=== PATIENT | female | born 1960 | race Caucasian/White ===

== ENCOUNTER → 2019-03-19 | Outpatient (CLI) | payer BC | LOC: RAD 07:34 | PROVIDERS: ATTEND Nurse Practitioner Family | DX: Z12.31 Encounter for screening mammogram for malignant neoplasm of breast (principal) | CPT/HCPCS: 77067 ==

== ENCOUNTER → 2019-03-29 | Outpatient (CLI) | payer BC ==
--- NOTE | 2019-03-29 13:50 | Diagnostic Imaging Report ---
INDICATION: Right breast calcifications. Patient presents for additional views. COMPARISON: Screening study from 03/19/2019. TECHNIQUE: Unilateral right 2D and 3D diagnostic mammography was performed. Images include magnification CC and ML as well as a conventional 90 degree lateral view. FINDINGS: The additional views show a cluster of calcifications in the lower and slightly inner retroareolar right breast. These have increased in number since 2017. While many of these appear to be punctate or round, there may be some pleomorphism present. No associated soft tissue mass is identified. IMPRESSION: Cluster of microcalcifications in the lower inner retroareolar right breast. DCIS cannot be entirely excluded. Tissue sampling is recommended. These would be amenable to a stereotactic approach. The findings and recommendations were discussed with the patient. ACR BI-RADS Category 4: Suspicious abnormality. Result letter will be mailed to the patient. Note: At least 10% of breast cancer is not imaged by mammography. Dictated by: Dictated on workstation # [id number]
== END ==
LOC: RAD 12:56
PROVIDERS: ATTEND Nurse Practitioner Family
DX: R92.0 Mammographic microcalcification found on diagnostic imaging of breast (principal)

== ENCOUNTER → 2019-04-09 | Outpatient (CLI) | payer BC ==
[~2019-04-09] VITALS: Ht 172.7 cm; Wt 57.6 kg
[~2019-04-09] MED LIST: LIDOCAINE 1% INJ 20 ML 20 ML VIAL INJ ONE
--- NOTE | 2019-04-09 21:07 | Diagnostic Imaging Report ---
INDICATION: Right breast calcifications. Patient presents for stereotactic biopsy. PROCEDURE: Patient was brought to the stereotactic suite and was placed in a sitting upright position. The breast was positioned mediolaterally. Skin of the medial right breast was prepped and draped in the usual sterile fashion. A small amount of 1% lidocaine was utilized for local anesthesia. An 8-gauge stereotactic needle was advanced into the right breast from a medial approach and placed with its tip per stereotactic coordinates. A total of four core biopsies were obtained with the vacuum assisted device. Specimen radiograph does show calcifications in all four samples, most numerous in sample labeled #1. A localizer clip was then deployed. Followup mammogram viewed on a separate workstation demonstrates a clip in the lower and slightly medial right breast with moderate amount of soft tissue gas from biopsy. IMPRESSION: Successful stereotactic biopsy of right breast calcifications, as described. Pathology results are currently pending. Dictated by: Dictated on workstation # [id number]
== END ==
LOC: RAD 09:42
PROVIDERS: ATTEND Nurse Practitioner Family
DX: D05.11 Intraductal carcinoma in situ of right breast (principal)
CPT/HCPCS: 19081; 88305; 88341; 88342; 88360

== ENCOUNTER 2019-04-16 13:38 | Outpatient (RCR) | payer BC ==
[2019-06-23] MEDS ORDERED: CEPH-507 PO (21:48)
== END 2019-07-15 | disposition home or self-care (01) ==
LOC: ONC 13:38
PROVIDERS: ATTEND Internal Medicine Hematology & Oncology
DX: D05.11 Intraductal carcinoma in situ of right breast (principal); Z80.3 Family history of malignant neoplasm of breast
CPT/HCPCS: 99214

== ENCOUNTER 2019-06-23 19:16 | Emergency (ER) | payer BC ==
[~2019-06-23] VITALS: Ht 172.7 cm; Wt 61.2 kg
--- NOTE | 2019-06-23 19:33 | NUR ---
pt here with " ". pt alert gcs 15. pt had recent bilateral mastectomies. pt been c/o constipation ongoing but developed fever today. pt presents with 4 kodak drains each with positive sx applied. 2 to each breast. pt with serosanguinous drainage and orange drainage noted. on exam left opsite dressing breast appears slightly pink/red. as compared to right which has normal skin color. opsites are clear. pt had " little" bm this am and been using colace mom, mirilax and mag. citrate. pt denies abd pain and n/v. denies dyspnea and no acute sighns of dyspnea noted. lungs cta bilaterally. abd soft nondistended neg pain with palpation. bp left popliteal is 183/102.done kiya pt 194.
--- NOTE | 2019-06-23 19:33 | NUR ---
i apologized to pt. i accidentally caused some pain with lungs sounds touching left breast area incisional area.
--- NOTE | 2019-06-23 19:50 | NUR ---
v/o dr clemons while ago. ok to use left arm for bp and iv.
--- NOTE | 2019-06-23 19:54 | ED GI ---
General Chief Complaint: Abdominal/GI Problems Stated Complaint: FEVER,CONSTIPATION Nursing Triage Note: PATIENT HERE AFTER A DOUBLE MASTECTOMY ON 06/10. SHE HAS CONTINUED TO HAVE PROBLEMS WITH BOWELS SINCE SURGERY. TODAY SHE ALSO BEGAN TO RUN A FEVER. Sepsis Screen: Possible Sepsis Risk Source of Information: Patient Exam Limitations: No Limitations History of Present Illness Date Seen by Provider: Jun 23, 2019 Time Seen by Provider: 19:49 Initial Comments To ER per private vehicle from home with reports of constipation. 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 . She was then found to have a previously unseen tumor of the right breast on pathology report after mastectomy. She had sentinel node biopsy on the right (no lymph node resection on the left). She's had constipation with no bowel movement since the end of May. After surgery she was given ibuprofen and Valium which she took for about one week and has been off of for one week. She is not on opiates. She has tried lltm-psw-elbuttn MiraLAX 1 capful daily, magnesium citrate daily for 3 days, Colace, milk of magnesia. She tried a fleets enema today with minimal output. She denies abdominal pain but does report a heaviness sensation. She denies nausea or vomiting. She does have reports of fever at home starting last night up to 104. In regards to the Omi-Rollins drains that she has, the drainage is reducing and volume and improving and clarity becoming less bloody than more serious. She has follow-up scheduled tomorrow with oncology and plastic surgery in [place]. Timing/Duration: Other Severity/Quality: Moderate Location: Generalized Abdomen Radiation: No Radiation Activities at Onset: None Associated Symptoms: Denies Symptoms Allergies and Home Medications Allergies Coded Allergies: No Known Drug Allergies (Unverified , 04/09/19) Home Medications Cephalexin 500 Mg Capsule, 500 MG PO TID Prescribed by: SAMUEL JOINER on 06/23/19 8634 Patient Home Medication List Home Medication List Reviewed: Yes Review of Systems Review of Systems Constitutional: see HPI, fever EENTM: No Symptoms Reported Respiratory: No Symptoms Reported Cardiovascular: No Symptoms Reported Gastrointestinal: See HPI, Constipated Genitourinary: No Symptoms Reported Musculoskeletal: no symptoms reported Skin: no symptoms reported Psychiatric/Neurological: No Symptoms Reported Past Gbpvvqg-Xtdynz-Eeiadm Hx Patient Social History Alcohol Use: Rarely Uses Recreational Drug Use: No Smoking Status: Never a Smoker 2nd Hand Smoke Exposure: No Recent Foreign Travel: No Contact w/Someone Who Travel: No Recent Infectious Disease Expo: No Recent Hopitalizations: No Seasonal Allergies Seasonal Allergies: No Past Medical History Surgeries: Yes Breast Respiratory: No Cardiac: No Neurological: No Genitourinary: No Gastrointestinal: No Musculoskeletal: No Endocrine: No HEENT: No Cancer: Yes Breast Integumentary: No Physical Exam Vital Signs Vital Signs - First Documented 06/23/19 06/23/19 19:23 21:26 Temp 100.5 Pulse 102 Resp 20 B/P (MAP) 115/57 (76) Pulse Ox 97 O2 Delivery Room Air Capillary Refill : Less Than 3 Seconds Height/Weight/BMI Height: 5'8.00" Weight: 135lbs. 0oz. [id number]; 19.3 BMI Method:Actual General Appearance: WD/WN, no apparent distress HEENT: PERRL/EOMI, normal ENT inspection Neck: non-tender, full range of motion Respiratory: no respiratory distress, no accessory muscle use Gastrointestinal: normal bowel sounds, non tender, soft; No distended, No guarding, No rebound, No tenderness Extremities: normal range of motion, non-tender Neurologic/Psychiatric: alert, normal mood/affect, oriented x 3 Skin: normal color, warm/dry, other (the mastectomy incisions to the anterior chest wall are clean dry and intact without drainage, no erythema. No dehiscence of the wounds.) Focused Exam Lactate Level 06/23/19 20:02: Lactic Acid Level 1.09 Lactic Acid Level Laboratory Tests Test 06/23/19 20:02 Lactic Acid Level 1.09 MMOL/L (0.50-2.00) Progress/Results/Core Measures Results/Orders Lab Results Laboratory Tests Test 06/23/19 20:02 06/23/19 20:13 Range/Units White Blood Count 15.0 H 4.3-11.0 10^3/uL Red Blood Count 4.10 L 4.35-5.85 10^6/uL Hemoglobin 12.2 11.5-16.0 G/DL Hematocrit 36 35-52 % Mean Corpuscular Volume 88 80-99 FL Mean Corpuscular Hemoglobin 30 25-34 PG Mean Corpuscular Hemoglobin Concent 34 32-36 G/DL Red Cell Distribution Width 13.0 10.0-14.5 % Platelet Count 257 130-400 10^3/uL Mean Platelet Volume 10.1 7.4-10.4 FL Neutrophils (%) (Auto) 90 H 42-75 % Lymphocytes (%) (Auto) 5 L 12-44 % Monocytes (%) (Auto) 4 0-12 % Eosinophils (%) (Auto) 0 0-10 % Basophils (%) (Auto) 0 0-10 % Neutrophils # (Auto) 13.5 H 1.8-7.8 X 10^3 Lymphocytes # (Auto) 0.8 L 1.0-4.0 X 10^3 Monocytes # (Auto) 0.6 0.0-1.0 X 10^3 Eosinophils # (Auto) 0.0 0.0-0.3 10^3/uL Basophils # (Auto) 0.0 0.0-0.1 10^3/uL Neutrophils % (Manual) 90 % Lymphocytes % (Manual) 5 % Monocytes % (Manual) 4 % Band Neutrophils 1 % Toxic Granulation 1+ Blood Morphology Comment NORMAL Sodium Level 141 135-145 MMOL/L Potassium Level 3.9 3.6-5.0 MMOL/L Chloride Level 103 98-107 MMOL/L Carbon Dioxide Level 26 21-32 MMOL/L Anion Gap 12 5-14 MMOL/L Blood Urea Nitrogen 13 7-18 MG/DL Creatinine 0.82 0.60-1.30 MG/DL Estimat Glomerular Filtration Rate > 60 BUN/Creatinine Ratio 16 Glucose Level 104 70-105 MG/DL Lactic Acid Level 1.09 0.50-2.00 MMOL/L Calcium Level 9.1 8.5-10.1 MG/DL Corrected Calcium 8.9 8.5-10.1 MG/DL Total Bilirubin 0.3 0.1-1.0 MG/DL Aspartate Amino Transf (AST/SGOT) 21 5-34 U/L Alanine Aminotransferase (ALT/SGPT) 22 0-55 U/L Alkaline Phosphatase 82 40-136 U/L Total Protein 6.8 6.4-8.2 GM/DL Albumin 4.2 3.2-4.5 GM/DL Urine Color YELLOW Urine Clarity CLEAR Urine pH 7 5-9 Urine Specific [place] 1.005 L 1.016-1.022 Urine Protein NEGATIVE NEGATIVE Urine Glucose (UA) NEGATIVE NEGATIVE Urine Ketones NEGATIVE NEGATIVE Urine Nitrite NEGATIVE NEGATIVE Urine Bilirubin NEGATIVE NEGATIVE Urine Urobilinogen NORMAL NORMAL MG/DL Urine Leukocyte Esterase 1+ H NEGATIVE Urine RBC (Auto) NEGATIVE NEGATIVE Urine RBC NONE /HPF Urine WBC NONE /HPF Urine Crystals NONE /LPF Urine Bacteria TRACE /HPF Urine Casts NONE /LPF Urine Mucus NEGATIVE /LPF Urine Culture Indicated NO Micro Results Microbiology 06/23/19 Blood Culture - Preliminary, Resulted No growth 06/23/19 Blood Culture - Preliminary, Resulted No growth My Orders Orders - SAMUEL JOINER C[employer] PLAYER Cbc With Automated Diff (06/23/19 19:46) Comprehensive Metabolic Panel (06/23/19 19:46) Ua Culture If Indicated (06/23/19 19:46) Ed Iv/Invasive Line Start (06/23/19 19:46) Ct Abdomen/Pelvis W (06/23/19 19:46) Chest Pa/Lat (2 View) (06/23/19 19:46) Blood Culture (06/23/19 19:46) Lactic Acid Analyzer (06/23/19 19:46) Ed Iv/Invasive Line Start (06/23/19 19:46) Manual Differential (06/23/19 20:02) Iohexol Injection (Omnipaque 350 Mg/Ml 1 (06/23/19 20:45) Received Contrast (Hold Metformin- Contr (06/23/19 20:45) Ns (Ivpb) (Sodium Chloride 0.9% Ivpb Bag (06/23/19 20:45) Peg 3340/Electrolyte Powder (Golytely Po (06/23/19 21:15) Rx-Cephalexin Capsule (Rx-Keflex Capsule (06/23/19 22:02) Vital Signs/I&O 06/23/19 06/23/19 06/23/19 19:23 21:26 22:28 Temp 100.5 100.0 99.5 Pulse 102 96 88 Resp 20 12 16 B/P (MAP) 115/57 (76) 113/49 (70) Pulse Ox 97 98 96 O2 Delivery Room Air Room Air Diagnostic Imaging Diagonstic Imaging: Xray Comments NAME: CARLYN VALDES [facility] REC#: [id number] PT STATUS: REG ER : 1960 PHYSICIAN: SAMUEL JOINER APRN ADMIT DATE: 06/23/19/ER Draft Date of Exam:06/23/19 CT ABDOMEN/PELVIS W PROCEDURE: CT abdomen and pelvis with contrast. TECHNIQUE: Multiple contiguous axial images were obtained through the abdomen and pelvis after administration of intravenous contrast. Auto Exposure Controls were utilized during the CT exam to meet ALARA standards for radiation dose reduction. INDICATION: Fever. Status post recent double mastectomy. COMPARISON: None FINDINGS: Included portions of the lung bases show minimal atelectasis. Postsurgical changes of bilateral breasts partially visualized. CT abdomen: Large amount of air and stool is noted scattered throughout the colon. Normal appendix cannot be adequately identified, but there is no pericecal inflammation. Small bowel loops are nondistended. The kidneys, adrenal glands, spleen, and pancreas have a normal CT appearance. Within the liver, there is spherical lesion near the junction of segments 5 and 6. Note is made of nodular peripheral enhancement suggestive of hemangioma. No other focal hepatic abnormalities are seen. There is no loculated fluid collection, free fluid, nor free air within the abdomen. No abnormal mesenteric or retroperitoneal adenopathy is seen. There is mild scattered calcified aortic atherosclerosis. Osseous structures show no acute abnormalities. CT pelvis: Urinary bladder is grossly unremarkable. There appears to be trace free fluid. There is no loculated fluid collection or free air within the pelvis. No abnormal adenopathy is seen. Osseous structures show no acute abnormalities. IMPRESSION: 1. Large amount of colonic air and stool. Please correlate for constipation. 2. Small hepatic lesion, which likely represents a small hemangioma. Followup is recommended. 3. Trace free fluid within the pelvis. No loculated fluid collection to suggest abscess. Dictated on workstation # [id number] Dict: 06/23/192115 Trans: 06/23/192138 [facility] [id number] Interpreted by: MANFRED FREITAS MD Electronically signed by: NAME: CARLYN VALDES [facility] REC#: [id number] PT STATUS: REG ER : 1960 PHYSICIAN: SAMUEL JOINER APRN ADMIT DATE: 06/23/19/ER Draft Date of Exam:06/23/19 CHEST PA/LAT (2 VIEW) INDICATION: Bilateral mastectomy. Fever. COMPARISON: None FINDINGS: Frontal and lateral views of the chest demonstrate normal heart size and pulmonary vascularity. The lungs are clear. There are no signs of infiltrate, pleural effusions or pneumothoraces. The visualized osseous structures show no acute abnormalities. Postsurgical changes of bilateral breasts are identified. Indwelling surgical channel drains are noted. IMPRESSION: 1. No acute process. No signs of infiltrates, effusions or pneumothoraces. Dictated on workstation # [id number] Dict: 06/23/192141 Trans: 06/23/192142 [facility] [id number] Interpreted by: MANFRED FREITAS MD Electronically signed by: Departure Impression Primary Impression: Constipation Qualified Codes: K59.00 - Constipation, unspecified Additional Impression: Post operative leukocytosis Disposition: 01 HOME, SELF-CARE Condition: Stable Departure-Patient Inst. Decision time for Depature: 21:46 Referrals: GENA MYERS MD (PCP/Family) Primary Care Physician Patient Instructions: Constipation, Adult (DC) Add. Discharge Instructions: 1. Keep your appointment with your physician tomorrow. Take the laxative tonight. 8 ounces every 15 minutes until bowel movement. Scripts Cephalexin (Keflex) 500 Mg Capsule 500 MG PO TID, #15 CAP Prov: SAMUEL JOINER APRN 06/23/19 SAMUEL JOINER APRN Jun 23, 2019 19:54
--- NOTE | 2019-06-23 20:02 | NUR ---
bp left arm is 131/53
--- NOTE | 2019-06-23 20:02 | NUR ---
dr knows bp left arm
--- NOTE | 2019-06-23 20:02 | NUR ---
pt knows npo.
--- NOTE | 2019-06-23 20:07 | NUR ---
labs to lab by me
--- NOTE | 2019-06-23 20:09 | NUR ---
pt to bathroom for ua.
--- NOTE | 2019-06-23 20:14 | NUR ---
lab taking ua with there blood cx.
[2019-06-23 20:22] LABS: BASOPHILS % (AUTO) 0 % (0-10); EOSINOPHILS % (AUTO) 0 % (0-10); HEMATOCRIT 36 % (35-52); HEMOGLOBIN 12.2 G/DL (11.5-16.0); LYMPHOCYTES # (AUTO) 0.8 X 10^3 (1.0-4.0); LYMPHOCYTES % (AUTO) 5 % (12-44); MEAN CORPUSCULAR HEMOGLOBIN 30 PG (25-34); MEAN CORPUSCULAR HGB CONC 34 G/DL (32-36); MEAN CORPUSCULAR VOLUME 88 FL (80-99); MEAN PLATELET VOLUME 10.1 FL (7.4-10.4); MONOCYTES # (AUTO) 0.6 X 10^3 (0.0-1.0); MONOCYTES % (AUTO) 4 % (0-12); NEUTROPHILS # (AUTO) 13.5 X 10^3 (1.8-7.8); NEUTROPHILS % (AUTO) 90 % (42-75); PLATELET COUNT 257 10^3/uL (130-400)
[2019-06-23 20:25] LABS: BILIRUBIN,URINE NEGATIVE (NEGATIVE); CLARITY,URINE CLEAR; COLOR,URINE YELLOW; GLUCOSE, URINE (UA) NEGATIVE (NEGATIVE); KETONES,URINE NEGATIVE (NEGATIVE); LEUKOCYTE ESTERASE ,URINE 1+ (NEGATIVE); NITRITE,URINE NEGATIVE (NEGATIVE); PH,URINE 7 (5-9); PROTEIN,URINE NEGATIVE (NEGATIVE); UROBILINOGEN,URINE NORMAL (NORMAL)
[2019-06-23 20:32] LABS: BACTERIA,URINE TRACE /HPF
[2019-06-23 20:45] LABS: ALANINE AMINOTRANSFERASE 22 U/L (0-55); ALBUMIN 4.2 GM/DL (3.2-4.5); ALKALINE PHOSPHATASE 82 U/L (40-136); BILIRUBIN,TOTAL 0.3 MG/DL (0.1-1.0); BUN/CREATININE RATIO 16; CALCIUM 9.1 MG/DL (8.5-10.1); CARBON DIOXIDE 26 MMOL/L (21-32); CHLORIDE 103 MMOL/L (98-107); CREATININE SERUM 0.82 MG/DL (0.60-1.30); GFR ESTIMATED > 60; GLUCOSE 104 MG/DL (70-105); POTASSIUM 3.9 MMOL/L (3.6-5.0); SODIUM 141 MMOL/L (135-145); TOTAL PROTEIN 6.8 GM/DL (6.4-8.2)
[2019-06-23] MEDS ORDERED: NS 100 ML (IVPB) BAG IV ONE (20:45)
[2019-06-23] MEDS ORDERED: HOLD METFORMIN - RECEIVED CONTRAST 20 ML VIAL IV SCH (20:45)
[2019-06-23] MEDS ORDERED: IOHEXOL 350 MG/ML 100 ML (OMNIPAQUE 350) VIAL IV ONE (20:45)
[2019-06-23 20:46] LABS: BAND NEUTROPHILS 1 %; NEUTROPHILS % (MANUAL) 90 %
[2019-06-23 20:47] LABS: LYMPHOCYTES % (MANUAL) 5 %; MONOCYTES % (MANUAL) 4 %; RBC MORPH NORMAL; TOXIC GRANULATION/VACUOLAZATIO 1+
[2019-06-23] MEDS ORDERED: GOLYTELY POWDER 4000 ML BTL PO ONE (21:15)
[2019-06-23 21:26] VITALS: BP 115/57
--- NOTE | 2019-06-23 21:27 | NUR ---
pt remains alert gcs 15. and another adult female in room. pt denies abd pain and nausea and no v/d noted in er visit thus far. denies dyspnea and no acute sighns of dyspnea noted.
--- NOTE | 2019-06-23 21:40 | Diagnostic Imaging Report ---
PROCEDURE: CT abdomen and pelvis with contrast. TECHNIQUE: Multiple contiguous axial images were obtained through the abdomen and pelvis after administration of intravenous contrast. Auto Exposure Controls were utilized during the CT exam to meet ALARA standards for radiation dose reduction. INDICATION: Fever. Status post recent double mastectomy. COMPARISON: None FINDINGS: Included portions of the lung bases show minimal atelectasis. Postsurgical changes of bilateral breasts partially visualized. CT abdomen: Large amount of air and stool is noted scattered throughout the colon. Normal appendix cannot be adequately identified, but there is no pericecal inflammation. Small bowel loops are nondistended. The kidneys, adrenal glands, spleen, and pancreas have a normal CT appearance. Within the liver, there is spherical lesion near the junction of segments 5 and 6. Note is made of nodular peripheral enhancement suggestive of hemangioma. No other focal hepatic abnormalities are seen. There is no loculated fluid collection, free fluid, nor free air within the abdomen. No abnormal mesenteric or retroperitoneal adenopathy is seen. There is mild scattered calcified aortic atherosclerosis. Osseous structures show no acute abnormalities. CT pelvis: Urinary bladder is grossly unremarkable. There appears to be trace free fluid. There is no loculated fluid collection or free air within the pelvis. No abnormal adenopathy is seen. Osseous structures show no acute abnormalities. IMPRESSION: 1. Large amount of colonic air and stool. Please correlate for constipation. 2. Small hepatic lesion, which likely represents a small hemangioma. Followup is recommended. 3. Trace free fluid within the pelvis. No loculated fluid collection to suggest abscess. Dictated by: Dictated on workstation # [id number]
--- NOTE | 2019-06-23 21:44 | Diagnostic Imaging Report ---
INDICATION: Bilateral mastectomy. Fever. COMPARISON: None FINDINGS: Frontal and lateral views of the chest demonstrate normal heart size and pulmonary vascularity. The lungs are clear. There are no signs of infiltrate, pleural effusions or pneumothoraces. The visualized osseous structures show no acute abnormalities. Postsurgical changes of bilateral breasts are identified. Indwelling surgical channel drains are noted. IMPRESSION: 1. No acute process. No signs of infiltrates, effusions or pneumothoraces. Dictated by: Dictated on workstation # [id number]
[2019-06-23] MEDS ORDERED: CEPH-507 PO (21:48)
--- NOTE | 2019-06-23 21:58 | NUR ---
dr aidee houser in room to give pt for home use.
[2019-06-23] MEDS ORDERED: RX-CEPHALEXIN (KEFLEX) 250 MG CAP PPK#4 PO STA (22:02)
[2019-06-23 22:28] VITALS: BP 113/49
--- NOTE | 2019-06-23 22:28 | NUR ---
d/c instructions to pt. told to read all papers. scripts faxed. pt left ambulatory with . pt knows f/u. i went over the handtyped by information on the chart. iv d/cd by me prior to d/c. take home golytely and keflex given. i wrote script dose and golytely on d/c instructions.
== END 2019-06-23 22:28 | disposition home or self-care (01) ==
LOC: EDUNIT# 19:16 → ER 19:18
DX: D72.829 Elevated white blood cell count, unspecified (principal); K59.00 Constipation, unspecified; Z85.3 Personal history of malignant neoplasm of breast; Z90.13 Acquired absence of bilateral breasts and nipples
CPT/HCPCS: 36415; 71046; 74177; 80053; 81000; 83605; 85007; 85027; 87040

== ENCOUNTER 2020-06-15 05:45 | Outpatient (CLI) | payer BC ==
[~2020-06-15] VITALS: Ht 172.7 cm; Wt 61.2 kg
[~2020-06-15 05:45] MED LIST changes: +CEPH-507 PO; -LIDOCAINE 1% INJ 20 ML 20 ML VIAL INJ ONE
[2020-06-15] MEDS ORDERED: ALEN70TA5 PO (15:03)
[2020-06-15] MEDS ORDERED: ANAS1TAB50 PO (15:03)
== END 2020-06-15 15:04 ==
LOC: PREOP 05:45
PROVIDERS: ATTEND Internal Medicine
DX: Z01.818 Encounter for other preprocedural examination (principal); Z01.812 Encounter for preprocedural laboratory examination; Z12.11 Encounter for screening for malignant neoplasm of colon; Z88.2 Allergy status to sulfonamides

== ENCOUNTER 2020-06-23 09:25 | Day surgery (SDC) | payer BC ==
--- NOTE | 2020-06-14 07:32 | HISTORY AND PHYSICAL ---
DATE OF SERVICE: COLONOSCOPY HISTORY AND PHYSICAL HISTORY OF PRESENT ILLNESS: The patient is a 59-year-old white female referred by Dr. Foreman for screening colonoscopy. She is deemed to be of higher than average risk as her twin sister was diagnosed with colon cancer in her late 40s and the patient has personal history of breast cancer diagnosed one year ago. She underwent a double mastectomy. She reports that genetic testing was negative. She does not recall any history of polyps on her last colonoscopy 10 years ago. PAST SURGICAL HISTORY: Significant for double mastectomy only. FAMILY HISTORY: Her twin sister with colon cancer diagnosed in her late 40s. Mother living at the age of 94 with type 2 diabetes mellitus, also a survivor of gastric cancer. Father at the age of 52 of pancreatic cancer and was a heavy smoker. She does not believe he had excessive drinking history. She has three sisters, one of which also has breast cancer. 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 PAST MEDICAL HISTORY: Significant for osteoporosis for which she takes alendronate. She has no history of fragility fracture, is on 2000 units of vitamin D daily and anastrozole 1 mg daily. REVIEW OF SYSTEMS: CONSTITUTIONAL: She denies night sweats, chills, fever or change in weight. CARDIOVASCULAR: She denies syncope, presyncope, chest pain, orthopnea, PND or pedal edema. PULMONARY: She denies cough, wheezing or shortness of breath. GASTROINTESTINAL: She denies bright red blood per rectum, melena, change in bowel habit or abdominal pain. PHYSICAL EXAMINATION: GENERAL: Reveals a fit appearing white female in no acute distress. VITAL SIGNS: Weight 136 pounds and blood pressure 130/80. HEENT: Unremarkable. Mallampati 1 pharyngeal configuration. CHEST: Clear to auscultation. CARDIOVASCULAR: Reveals a regular rate and rhythm without murmur, S3 or S4. ABDOMEN: Soft, supple without mass, organomegaly or tenderness. No bruits noted. EXTREMITIES: Reveal no cyanosis, clubbing or edema. ASSESSMENT AND PLAN: The patient was set up for screening colonoscopy, deemed to be of higher than average risk considering a twin sister diagnosed with early colon cancer in her late 40s. Prep instructions and Suprep kit were given and questions were answered. I thank you for the referral of this pleasant lady. Job ID: [id number] DocumentID: [id number] Dictated Date: 06/08/2020 16:51:39 Plastics Process Hand Date: 06/08/2020 17:28:15 Dictated By: BASSAM SAVAGE MD
[~2020-06-23] VITALS: Ht 172.7 cm; Wt 61.2 kg
[2020-06-23] VITALS (13 sets, daily range): BP systolic 131–152; BP diastolic 72–101
[~2020-06-23 09:25] MED LIST changes: +ALEN70TA5 PO; +ANAS1TAB50 PO
[2020-06-23] MEDS ORDERED: D5 LR IV SOLUTION 1,000 ML IV STA (09:33)
[2020-06-23] MEDS ORDERED: D5 LR IV SOLUTION 1,000 ML IV ONE (09:34)
--- OUTSIDE RECORDS SUMMARY | 2020-06-23 09:42 | XMS REPORT | Continuity of Care Document ---
Author Organization Unknown Address Unknown Phone Unavailable Allergies Active Description Code Type Severity Reaction Onset Reported/Identified Relationship to Patient Clinical Status Yes NKA NKA Drug Allergy N/A N/A Yes No Known Drug Allergies [id number] Drug Allergy Unknown N/A 04/09/2019 Yes Sulfa (Sulfonamide Antibiotics) [id number] Drug Allergy Unknown Rash 020 Medications There is no data. Problems Date Dx Coded Attending Type Code Diagnosis Diagnosed By 10/07/2014 Marty Ortiz V1 6.3 10/07/2014 Marty Ortiz V76.11 10/09/2014 Marty Ortiz V1 6.3 10/09/2014 Marty Ortiz V76.11 10/20/2014 Marty Ortiz V1 6.3 10/20/2014 Marty Ortiz V76.11 12/26/2015 Marty Ortiz Z12.31 12/26/2015 Marty Ortiz Z8 0.3 12/28/2015 Marty Ortiz Z12.31 12/28/2015 Marty Ortiz Z8 0.3 01/03/2016 Marty Ortiz Z12.31 01/03/2016 Marty Ortiz Z8 0.3 03/05/2016 H69.80 Oth Disrd Of Eustachian Tube, Unspecified Ear 03/13/2016 H69.83 Oth er Specified Disorders Of Eustachian Tube, Bilateral 04/24/2017 Purdom, [place] B H69.80 Other Specified Disorders Of Eustachian Tube, Unspecified Ear 04/30/2017 Marty Ortiz E7 8.5 Hyperlipidemia, unspecified 05/06/2017 Purdom, [place] B H69.83 Other Specified Disorders Of Eustachian Tube, Bilateral 05/07/2017 Marty Ortiz Z12.31 ENCNTR SCREEN MAMMOGRAM FOR MALIGNANT NE 05/09/2017 Marty Ortiz A Z12.31 ENCNTR SCREEN MAMMOGRAM FOR MALIGNANT NE 05/14/2017 Marty Ortiz Z12.31 ENCNTR SCREEN MAMMOGRAM FOR MALIGNANT NE 03/20/2019 SHIVAM RAMOS WEBMASTER Ot Z12.31 ENCNTR SCREEN MAMMOGRAM FOR MALIGNANT NE 03/29/2019 SHIVAM RAMOS WEBMASTER Ot Z12.31 ENCNTR SCREEN MAMMOGRAM FOR MALIGNANT NE 03/30/2019 SHIVAM RAMOS WEBMASTER Ot R92.0 MAMMOGRAPHIC MICROCALCIFICATION FOUND ON 04/15/2019 SHIVAM RAMOS WEBMASTER Ot R92.0 MAMMOGRAPHIC MICROCALCIFICATION FOUND ON 04/25/2019 LYNNETTE DENNISON Ot D05.11 INTRADUCTAL CARCINOMA IN SITU OF RIGHT B 04/28/2019 NITHIN LOCK MD Ot D05.11 INTRADUCTAL CARCINOMA IN SITU OF RIGHT B 04/28/2019 NITHIN LOCK MD Ot Z80.3 FAMILY HISTORY OF MALIGNANT NEOPLASM OF 05/11/2019 LYNNETTE DENNISON Ot D05.11 INTRADUCTAL CARCINOMA IN SITU OF RIGHT B 05/31/2019 NITHIN LOCK MD Ot D05.11 INTRADUCTAL CARCINOMA IN SITU OF RIGHT B 05/31/2019 NITHIN LOCK MD Ot Z80.3 FAMILY HISTORY OF MALIGNANT NEOPLASM OF 06/23/2019 SAMUEL JOINER WEBMASTER Ot D72.829 ELEVATED WHITE BLOOD CELL COUNT, UNSPECI 06/23/2019 SAMUEL JOINER WEBMASTER Ot K59.00 CONSTIPATION, UNSPECIFIED 06/23/2019 SAMUEL JOINER WEBMASTER Ot R50 .9 FEVER, UNSPECIFIED 06/23/2019 SAMUEL JOINER WEBMASTER Ot Z85 .3 PERSONAL HISTORY OF MALIGNANT NEOPLASM O 06/23/2019 SAMUEL JOINER WEBMASTER Ot Z90.13 ACQUIRED ABSENCE OF BILATERAL BREASTS AN 07/15/2019 NITHIN LOCK MD Ot D05.11 INTRADUCTAL CARCINOMA IN SITU OF RIGHT B 07/15/2019 NITHIN LOCK MD Ot Z80.3 FAMILY HISTORY OF MALIGNANT NEOPLASM OF 07/16/2019 NITHIN LOCK MD Ot D05.11 INTRADUCTAL CARCINOMA IN SITU OF RIGHT B 07/16/2019 NITHIN LOCK MD Ot Z80.3 FAMILY HISTORY OF MALIGNANT NEOPLASM OF 05/15/2020 W R03.0 Elev ated blood pressure reading without diagnosis of hypertension Oneida Foreman 06/05/2020 W R03.0 Elev ated blood pressure reading without diagnosis of hypertension Ahsan Oneida 06/15/2020 ASHVIN CHRISTIANSON, NITHIN Ot D05.11 INTRADUCTAL CARCINOMA IN SITU OF RIGHT B 06/15/2020 ASHVIN CHRISTIANSON, NITHIN Ot Z80.3 FAMILY HISTORY OF MALIGNANT NEOPLASM OF 06/16/2020 HUSSEIN CHRISTIANSON, BASSAM Wayne Ot Z01.812 ENCOUNTER FOR PREPROCEDURAL LABORATORY E 06/16/2020 HUSSEIN CHRISTIANSON, BASSAM Wayne Ot Z01.818 ENCOUNTER FOR OTHER PREPROCEDURAL EXAMIN 06/16/2020 HUSSEIN CHRISTIANSON, BASSAM Wayne Ot Z12. 11 ENCOUNTER FOR SCREENING FOR MALIGNANT NE 06/16/2020 BASSAM SAVAGE MD Ot Z88. 2 ALLERGY STATUS TO SULFONAMIDES STATUS 06/16/2020 BASSAM SAVAGE MD Ot Z01.812 ENCOUNTER FOR PREPROCEDURAL LABORATORY E 06/16/2020 HUSSEIN CHRISTIASNON, BASSAM Wayne Ot Z01.818 ENCOUNTER FOR OTHER PREPROCEDURAL EXAMIN 06/16/2020 BASSAM SAVAGE MD Ot Z12. 11 ENCOUNTER FOR SCREENING FOR MALIGNANT NE 06/16/2020 BASSAM SAVAGE MD Ot Z88. 2 ALLERGY STATUS TO SULFONAMIDES STATUS Procedures There is no data. Results Test Result Range Complete blood count (CBC) with automate d white blood cell (WBC) differential - 06/23/19 20:02 Blood leukocytes automated count (number/volume) 15.0 10*3/uL 4.3-11.0 Blood erythrocytes automated count (number/volume) 4.10 10*6/uL 4.35-5.85 Venous blood hemoglobin measurement (mass/volume) 12.2 g/dL 11.5-16.0 Blood hematocrit (volume fraction) 36 % 35-52 Automated erythrocyte mean corpuscular volume 88 [ foz_us] 80-99 Automated erythrocyte mean corpuscular h emoglobin (mass per erythrocyte) 30 pg 25-34 Automated erythrocyte mean corpuscular h emoglobin concentration measurement (mass/volume) 34 g/dL 32-36 Automated erythrocyte distribution width ratio 13. 0 % 10.0- 14.5 Automated blood platelet count (count/volume) 257 10*3/uL 130-400 Automated blood platelet mean volume measurement 10.1 [foz_us] 7.4-10.4 Automated blood neutrophils/100 leukocytes 90 % 42-75 Automated blood lymphocytes/100 leukocytes 5 % 12-44 Blood monocytes/100 leukocytes 4 % 0-12 Automated blood eosinophils/100 leukocytes 0 % 0-10 Automated blood basophils/100 leukocytes 0 % 0-10 Blood neutrophils automated count (number/volume) 13.5 10*3 1.8-7.8 Blood lymphocytes automated count (number/volume) 0.8 10*3 1.0-4.0 Blood monocytes automated count (number/volume) 0. 6 10*3 0.0-1.0 Automated eosinophil count 0.0 10*3/uL 0 .0-0.3 Automated blood basophil count (count/volume) 0.0 10*3/uL 0.0-0.1 Comprehensive metabolic panel - 06/23/19 20:02 Serum or plasma sodium measurement (moles/volume) 141 mmol/L 135-145 Serum or plasma potassium measurement (moles/volume) 3.9 mmol/L 3.6-5.0 Serum or plasma chloride measurement (moles/volume) 103 mmol/L 98-107 Carbon dioxide 26 mmol/L 21-32 Serum or plasma anion gap determination (moles/volume) 12 mmol/L 5-14 Serum or plasma urea nitrogen measurement (mass/volume ) 13 mg/dL 7-18 Serum or plasma creatinine measurement (mass/volume) 0.82 mg/dL 0.60-1.30 Serum or plasma urea nitrogen/creatinine mass ratio 16 NRG Serum or plasma creatinine measurement w ith calculation of estimated glomerular filtration rate > NRG Serum or plasma glucose measurement (mass/volume) 104 mg/dL 70-105 Serum or plasma calcium measurement (mass/volume) 9.1 mg/dL 8.5-10.1 Serum or plasma total bilirubin measurement (mass/volu me) 0.3 mg/dL 0.1-1.0 Serum or plasma alkaline phosphatase yajaira surement (enzymatic activity/volume) 82 U/L 40-136 Serum or plasma aspartate aminotransfera se measurement (enzymatic activity/volume) 21 U/L 5-34 Serum or plasma alanine aminotransferase measurement (enzymatic activity/volume) 22 U/L 0-55 Serum or plasma protein measurement (mass/volume) 6.8 g/dL 6.4-8.2 Serum or plasma albumin measurement (mass/volume) 4.2 g/dL 3.2-4.5 CALCIUM CORRECTED 8.9 mg/dL 8.5-10.1 Manual absolute plasma cell count - 06/10 02/26 20:02 Blood monocytes/100 leukocytes 4 % NRG Manual blood segmented neutrophils/100 leukocytes 90 % NRG Blood band neutrophils/100 leukocytes 1 % NRG Manual blood lymphocytes/100 leukocytes 5 % NRG Blood erythrocyte morphology finding identification NORMAL NRG Blood toxic granules detection by light microscopy 1+ NRG Blood lactic acid measurement (moles/vol ume) - 06/23/19 20:02 Blood lactic acid measurement (moles/volume) 1.09 mmol/L 0.50-2.00 Bacterial blood culture - 06/23/19 20:02 Bacterial blood culture NG NRG Complete urinalysis with reflex to cultu re - 06/23/19 20:13 Urine color determination YELLOW NRG Urine clarity determination CLEAR NR G Urine pH measurement by test strip 7 5-9 Specific gravity of urine by test strip 1.005 1.016-1.022 Urine protein assay by test strip, semi-quantitative NEGATIVE NEGATIVE Urine glucose detection by automated test strip NE GATIVE NEGATIVE Erythrocytes detection in urine sediment by light micr oscopy NEGATIVE NEGATIVE Urine ketones detection by automated test strip NE GATIVE NEGATIVE Urine nitrite detection by test strip NEGATIVE NEGATIVE Urine total bilirubin detection by test strip NEGA TIVE NEGATIVE Urine urobilinogen measurement by automated test strip (mass/volume) NORMAL NORMAL Urine leukocyte esterase detection by dipstick 1+ NEGATIVE Automated urine sediment erythrocyte cou nt by microscopy (number/high power field) NONE NRG Automated urine sediment leukocyte count by microscopy (number/high power field) NONE NRG Bacteria detection in urine sediment by light microsco py TRACE NRG Crystals detection in urine sediment by light microsco py NONE NRG Casts detection in urine sediment by light microscopy NONE NRG Mucus detection in urine sediment by light microscopy NEGATIVE NRG Complete urinalysis with reflex to culture NO NRG Bacterial blood culture - 06/23/19 20:17 Bacterial blood culture NG NRG Encounters ACCT No. Visit Date/Time Discharge Status Pt. Type Provider Facility Loc./Unit Complaint [id number] 09/30/2014 13:02:42 ACT Document Registration [id number] 06/15/2020 05:45:00 15:04:00 DIS Outpatient HUSSEIN CHRISTIANSON, BASSAM Wayne [facility] PREOP COLONOSCOPY [id number] 07/16/2019 00:12:00 23:59:59 CLS Preadmit NITHIN LOCK MD [facility] ONC [id number] 04/16/2019 13:38:00 00:01:00 DIS Outpatient NITHIN LOCK MD, V [facility] ONC [id number] 06/23/2019 19:18:00 22:28:00 DIS Emergency JOINERSAMUEL WEBMASTER [facility] ER FEVER,CONSTIPATION [id number] 04/09/2019 09:42:00 23:59:59 CLS Outpatient LYNNETTE DENNISON [facility] RAD R BREAST MICROCALCIFICATIONS [id number] 03/29/2019 12:56:00 23:59:59 CLS Outpatient SHIVAM RAMOS APRN [facility] RAD R BREAST CALCIFICATION S [id number] 03/19/2019 07:34:00 23:59:59 CLS Outpatient SHIVAM RAMOS APRN [facility] RAD SCREENING [id number] 06/23/2020 10:30:00 P EN Preadmit HUSSEIN CHRISTIANSON, BASSAM Wayne [facility] ENDO FAMILY HX COLON CA [id number] 04/28/2017 10:15:00 7 23:59:59 CLS Outpatient Marty Ortiz [facility].RAD GILSON [id number] 12/18/2015 14:30:00 6 23:59:59 CLS Outpatient Marty Ortiz [facility].RAD [id number] 09/30/2014 13:02:00 4 23:59:59 CLS Outpatient Marty Ortiz [facility].RAD [id number] 04/29/2018 09:26:00 04/29/2018 09:26: 00 CAN Outpatient Diana Marty [facility] undefined LAB [id number] 04/30/2017 07:43:00 04/30/2017 23:59: 00 DIS Outpatient Diana Marty [facility] undefined LAB [id number] 03/28/2017 08:53:00 03/28/2017 23:59: 00 DIS Outpatient Raleigh Woodruff [facility] ENT CLINIC [id number] 08/30/2016 09:15:00 08/30/2016 23:59: 00 DIS Outpatient Raleigh Woodruff [facility] Ent [facility] ENT CLINIC [id number] 02/23/2016 09:57:00 Document Registration [id number] 10/06/2018 15:10:44 10/06/2018 23:59:5 9 CLS Outpatient
[2020-06-23] MEDS ORDERED: LIDOCAINE JELLY 2% 6 ML SYRINGE MM PRN (09:45)
[2020-06-23] MEDS ORDERED: fentaNYL INJECTION 100 MCG/2 ML AMP IVP ONE (09:45)
[2020-06-23] MEDS ORDERED: MIDAZOLAM 5 MG/5 ML (VERSED) VIAL IV PRN (09:45)
[2020-06-23] MEDS ORDERED: MIDAZOLAM 5 MG/5 ML (VERSED) VIAL ONE (10:55)
[2020-06-23] MEDS ORDERED: LIDOCAINE JELLY 2% 6 ML SYRINGE ONE (10:55)
[2020-06-23] MEDS ORDERED: fentaNYL INJECTION 100 MCG/2 ML AMP ONE (10:56)
--- NOTE | 2020-06-23 12:03 | Pre-Op Note & Conscious Sedat ---
Pre-Operative Progress Note H&P Reviewed The H&P was reviewed, patient examined and no changes noted. Date H&P Reviewed: Jun 23, 2020 Time H&P Reviewed: 10:00 Conscious Sedation Pre-Proced ASA Score 2 For ASA 3 and 4: Consider anesthesia and medical clearance. Also, for patients with a history of failed moderate sedation consider anesthesia. Airway Lungs Heart ASA score ASA 1: a normal healthy patient ASA 2: a patient with a mild systemic disease (mid diabetes, controlled hypertension, obesity ASA 3: a patient with a severe systemic disease that limits activity (angina, COPD, prior Myocardial infarction) ASA 4: a patient with an incapacitating disease that is a constant threat to life (CHF, renal failure) ASA 5: a moribund patient not expected to survive 24 hrs. (ruptured aneurysm) ASA 6: a declared brain- patient whose organs are being harvested. For emergent operations, add the letter E after the classification Mallampati Classification Grade 1 Sedation Plan Analgesia, Amnesia, Plan communicated to team members, Discussed options with patient/fam, Discussed risks with patient/fam The patient is an appropriate candidate to undergo the planned procedure, sedation, and anesthesia. The patient immediately re-assessed prior to indication. BASSAM SAVAGE MD Jun 23, 2020 12:03
--- NOTE | 2020-06-23 15:12 | OPERATIVE REPORT ---
DATE OF SERVICE: COLONOSCOPY SUMMARY INDICATION FOR THE PROCEDURE: Screening colonoscopy, family history for colon cancer. DESCRIPTION OF PROCEDURE: The patient was placed in the left lateral decubitus position. Prior to undergoing colonoscopy, a digital rectal evaluation was performed. Anal sphincter tone was normal and the perianal reflexes intact. No abnormalities were noted on digital inspection of anal canal or distal rectal vault. The colonoscope was then inserted into the rectum and under direct visualization advanced to cecum. The cecum was identified by identification of the ileocecal valve and cecal strap. Photographic documentation was obtained. Careful inspection was made as the scope was withdrawn. The quality of prep was fair at best. FINDINGS: There was no evidence for internal or external hemorrhoids and the rectum was unremarkable. Present in the proximal sigmoid colon was a 5 mm sessile polyp not ulcerated, but quite friable. It was photographed and biopsied and ablated with no significant blood loss. No evidence for diverticular disease was noted. The descending colon, splenic flexure, transverse colon, hepatic flexure, ascending colon and cecum were unremarkable. There was a small amount of retained fecal material as well as a fair amount of turbid fluid, the majority of which I was able to suction ASSESSMENT AND PLAN: One 5 mm sessile adenomatous appearing polyp was removed from the proximal sigmoid colon. This is an otherwise normal colonoscopy to the cecum. Considering the prep was not optimal and family history of colon cancer involving her twin diagnosed at the age of 49, we will be abdicating repeat surveillance colonoscopy in one year. I thank you for the referral of this pleasant lady. Job ID: [id number] DocumentID: [id number] Dictated Date: 06/23/2020 12:08:06 Floor Molder Date: 06/23/2020 15:11:36 Dictated By: BASSAM SAVAGE MD
== END 2020-06-23 12:44 | disposition home or self-care (01) ==
LOC: ENDO 09:25
PROVIDERS: ATTEND Internal Medicine
DX: Z12.11 Encounter for screening for malignant neoplasm of colon (principal); D12.5 Benign neoplasm of sigmoid colon; Z88.2 Allergy status to sulfonamides; Z80.0 Family history of malignant neoplasm of digestive organs; Z83.3 Family history of diabetes mellitus; Z80.3 Family history of malignant neoplasm of breast
CPT/HCPCS: 88305

== ENCOUNTER → 2020-08-24 | Outpatient (CLI) | payer BC ==
--- NOTE | 2020-08-24 13:51 | Diagnostic Imaging Report ---
INDICATION: Status post double mastectomy in 2019. Patient does have a raised area in the right breast. Study is performed for further evaluation. Sonographic interrogation of the area of palpable abnormality right breast was performed. This corresponds to 11:30 location, 1 cm from the nipple. Area of concern appears to represent a portion of the right breast implant. No discrete mass is seen. No fluid collection is identified. IMPRESSION: BI-RADS November 11 The area of concern most likely represents a portion of the patient's right breast implant. No other significant abnormality is detected. ACR BI-RADS Category 2: Benign findings. Dictated by: Dictated on workstation # [id number]
== END ==
LOC: RAD 12:36
PROVIDERS: ATTEND Hospitalist
DX: C50.411 Malignant neoplasm of upper-outer quadrant of right female breast (principal); M85.80 Other specified disorders of bone density and structure, unspecified site; Z79.811 Long term (current) use of aromatase inhibitors

== ENCOUNTER → 2021-08-01 | Outpatient (CLI) | payer BC ==
[~2021-08-01] VITALS: Ht 172.7 cm; Wt 62.2 kg
[~2021-08-01] MED LIST changes: -ALEN70TA5 PO; +ALEN70TA80 PO; +MV-M1TAB20 PO
== END | disposition home or self-care (01) ==
LOC: PREOP 09:30
PROVIDERS: ATTEND Internal Medicine
DX: Z01.818 Encounter for other preprocedural examination (principal)

== ENCOUNTER 2021-08-10 06:51 | Day surgery (SDC) | payer BC ==
--- NOTE | 2021-08-02 06:05 | HISTORY AND PHYSICAL ---
DATE OF SERVICE: COLONOSCOPY HISTORY AND PHYSICAL HISTORY OF PRESENT ILLNESS: The patient is a 60-year-old white female referred by Dr. Foreman for surveillance colonoscopy. She underwent colonoscopy a year ago, had a tubular adenoma removed from the proximal sigmoid colon. She is deemed to be of higher than average risk as she has a twin, who was diagnosed with colon cancer at the age of 49. She reports that there have been no changes in her health history over the past year, she has been feeling well, has noted no bowel habit change. Denies bright red blood per rectum, melena or abdominal pain. She was diagnosed with breast cancer in 2019, ended up undergoing a double mastectomy. She was BRCA negative. She has history of osteoporosis for which she continues to take alendronate for as well as vitamin D. The only other medication includes anastrozole 1 mg daily. 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 PHYSICAL EXAMINATION: GENERAL: Reveals a white female appeared to be in no acute distress. VITAL SIGNS: Blood pressure 118/80, weight 144 pounds. HEENT: Unremarkable. CHEST: Clear. CARDIOVASCULAR: Regular rate and rhythm without murmur, S3 or S4. ABDOMEN: Soft, supple without mass, organomegaly or tenderness. EXTREMITIES: Reveal no cyanosis, clubbing or edema. ASSESSMENT AND PLAN: The patient is set up for surveillance colonoscopy due to past history of colon polyps as noted above and family history for colon cancer, index case being a twin diagnosed at the around the age of 49. Thank you for the referral of this pleasant lady. Job ID: [id number] DocumentID: [id number] Dictated Date: 07/17/2021 14:07:39 Business Representative Date: 07/17/2021 14:20:28 Dictated By: BASSAM SAVAGE MD
[~2021-08-10] VITALS: Ht 172.7 cm; Wt 62.2 kg
--- OUTSIDE RECORDS SUMMARY | 2021-08-10 06:54 | XMS REPORT | Clinical Summary ---
Author Author [facility] Organization [facility] Address Unknown Phone Unavailable Care Team Providers Care Wood Heel Cementer Name Role Phone Marty Ortiz MD PCP [phone] Allergies Not on File Medications Not on file Active Problems Not on file Social History Date Tobacco Use Types Packs/Day Years Used Never Assessed Sex Assigned at Date Recorded Not on file Last Filed Vital Signs Not on file Plan of Treatment Health Maintenance Due Date Last Done Comments COVID-19 Vaccine (1) 1971 Hepatitis C Screening 1977 DTaP,Tdap,and Td Vaccines 1978 (1 - Tdap) MMR Vaccines-Adult 1978 Cervical Cancer Screening 1980 Breast Cancer 2009 Screening-Mammogram Colon Cancer Screening 2009 Zoster Vaccine (1 of 2) 2009 Influenza Vaccine (#1) 2021 07/27/2013, 08/19/2012, 09/04/2011, Additional history exists Pneumo-Vaccine: 65+Yrs (1 2024 of 1 - PPSV23) HIB Vaccines Aged Out No longer eligible based on patient's age to complete this topic IPV Vaccines Aged Out No longer eligible based on patient's age to complete this topic Meningococcal Vaccine Aged Out No longer eligib le based on patient's age to complete this topic Pneumo-Vaccine: Peds (0-5 Aged Out No longer el igible based on patient's age to Yrs) & At-Risk Patients complete this topic (6-64 Yrs) Rotavirus Vaccines Aged Out No longer eligible based on patient's age to complete this topic Results Not on filefrom Last 3 Months Advance Directives For more information, please contact: [phone] Patient Correspondence Renew Clerk Explanation Type Date Recorded Advance Directives and Living Will Power of Furniture Servicer Care Teams Start Date End Date Wood Heel Cementer Relationship Specialty 05/23/15 Marty Ortiz, PCP - General [phone] [place], [place] [id number]
[2021-08-10] MEDS ORDERED: LACTATED RINGERS 1,000 ML IV ONE (07:06)
[2021-08-10] MEDS ORDERED: LACTATED RINGERS 1,000 ML IV STA (07:07)
[2021-08-10] MEDS ORDERED: LIDOCAINE JELLY 2% 6 ML SYRINGE MM PRN (07:15)
[2021-08-10 07:20] VITALS: BP 139/69
[2021-08-10] MEDS ORDERED: MIDAZOLAM 2 MG/2 ML (VERSED) VIAL ONE (07:27)
[2021-08-10] MEDS ORDERED: PROPOFOL INJECTION 50 ML IV ONE ×2 (07:27→09:14)
[2021-08-10 08:25] VITALS: BP 108/54
[2021-08-10 08:30] VITALS: BP 103/54
[2021-08-10 08:35] VITALS: BP 106/55
[2021-08-10 08:40] VITALS: BP 106/55
[2021-08-10 09:01] VITALS: BP 110/60
--- NOTE | 2021-08-10 10:33 | Pre-Op Note & Conscious Sedat ---
Pre-Operative Progress Note H&P Reviewed The H&P was reviewed, patient examined and no changes noted. Date H&P Reviewed: Aug 10, 2021 Time H&P Reviewed: 07:30 Conscious Sedation Pre-Proced ASA Score 1 For ASA 3 and 4: Consider anesthesia and medical clearance. Also, for patients with a history of failed moderate sedation consider anesthesia. Airway Lungs Heart ASA score ASA 1: a normal healthy patient ASA 2: a patient with a mild systemic disease (mid diabetes, controlled hypertension, obesity ASA 3: a patient with a severe systemic disease that limits activity (angina, COPD, prior Myocardial infarction) ASA 4: a patient with an incapacitating disease that is a constant threat to life (CHF, renal failure) ASA 5: a moribund patient not expected to survive 24 hrs. (ruptured aneurysm) ASA 6: a declared brain- patient whose organs are being harvested. For emergent operations, add the letter E after the classification Mallampati Classification Grade 1 Sedation Plan Analgesia, Amnesia, Plan communicated to team members, Discussed options with patient/fam, Discussed risks with patient/fam The patient is an appropriate candidate to undergo the planned procedure, sedation, and anesthesia. The patient immediately re-assessed prior to indication. BASSAM SAVAGE MD Aug 10, 2021 10:33
--- NOTE | 2021-08-10 13:48 | OPERATIVE REPORT ---
DATE OF SERVICE: COLONOSCOPY SUMMARY INDICATION FOR THE PROCEDURE: History of colon polyps, family history of colon cancer. DESCRIPTION OF PROCEDURE: The patient was placed in the left lateral decubitus position. Prior to undergoing colonoscopy, a digital rectal evaluation was performed. Anal sphincter tone was normal. Perianal reflexes intact. No abnormalities were noted on digital inspection of the anal canal or distal rectal vault. The colonoscope was then inserted into the rectum and under direct visualization, advanced to the cecum. The cecum was identified by identification of the ileocecal valve and cecal strap. Photographic documentation was obtained. Careful inspection was made as the colonoscope was withdrawn. The patient tolerated the procedure well. FINDINGS: There was no evidence for internal or external hemorrhoids and the rectum, sigmoid colon, descending colon, splenic flexure, transverse colon and hepatic flexure were unremarkable. Present in the mid ascending colon is a diminutive 2 mm sessile polyp. It was biopsied and ablated and submitted for histopathology. The remainder of the ascending colon and cecum were unremarkable. Quality of prep was fair. ASSESSMENT: One diminutive polyp was removed from the mid ascending colon. As long as there are no surprises on histopathology report, would advocate repeat surveillance colonoscopy in five years considering family history. I thank you for the referral of this pleasant lady. Job ID: [id number] DocumentID: [id number] Dictated Date: 08/10/2021 08:30:17 Naturopath Date: 08/10/2021 13:47:20 Dictated By: BASSAM SAVAGE MD
== END 2021-08-10 09:26 | disposition home or self-care (01) ==
LOC: ENDO 06:51
PROVIDERS: ATTEND Internal Medicine
DX: Z12.11 Encounter for screening for malignant neoplasm of colon (principal); D12.2 Benign neoplasm of ascending colon; K63.89 Other specified diseases of intestine; M81.0 Age-related osteoporosis without current pathological fracture; C50.919 Malignant neoplasm of unspecified site of unspecified female breast; Z80.0 Family history of malignant neoplasm of digestive organs; Z79.899 Other long term (current) drug therapy

== ENCOUNTER → 2021-11-27 | Outpatient (CLI) | payer BC ==
--- NOTE | 2021-11-27 16:15 | Diagnostic Imaging Report ---
INDICATION: 61-year-old asymptomatic postmenopausal female COMPARISON: None available. FINDINGS: AP Spine L1-L4: [BMD (g/cm2): 0.938] [T-Score: -2.2] [Z-Score: -0.7] [BMD Previous: NA] [BMD % Change: NA] LT Hip Neck: [BMD (g/cm2): 0.835] [T-Score: -1.5] [Z-Score: -0.1] LT Hip Total: [BMD (g/cm2):0.885] [T-Score:-1.0] [Z-Score: 0.1] [BMD Previous: NA] [BMD % Change: NA] RT Hip Neck: [BMD (g/cm2):0.880] [T-Score:-1.1] [Z-Score:0.2] RT Hip Total: [BMD (g/cm2):0.924] [T-score:-0.7] [Z-Score:0.4] [BMD Previous:NA] [BMD % Change:NA] *Indicates significant change from prior examination based on 95% confidence level. World Health Organization criteria for BMD interpretation classify patients as Normal (T-score at or above -1.0), Osteopenic (T-score between -1.0 and -2.5) or Osteoporotic (T-score at or below -2.5). LIMITATIONS AND MODIFICATION: None. FRACTURE RISK (FRAX SCORE): Currently on drug therapy. The ten year probability of (%): Major Osteoporotic Fracture: [NA] Hip Fracture: [NA] IMPRESSION: 1. Osteopenia (Low bone mass). 2. Baseline examination. 3. Consider follow-up DEXA in 24 months to reassess bone mineral density. Dictated by: Dictated on workstation # [id number]
== END ==
LOC: RAD 13:30
PROVIDERS: ATTEND Hospitalist
DX: M85.80 Other specified disorders of bone density and structure, unspecified site (principal); C50.411 Malignant neoplasm of upper-outer quadrant of right female breast; Z78.0 Asymptomatic menopausal state; Z79.811 Long term (current) use of aromatase inhibitors
CPT/HCPCS: 77080

== ENCOUNTER → 2023-09-15 | Outpatient (CLI) | payer BC | LOC: RAD 15:35 | PROVIDERS: ATTEND Family Medicine | DX: M81.0 Age-related osteoporosis without current pathological fracture (principal); R68.84 Jaw pain ==